=== PATIENT | male | born 1945 | race Caucasian/White ===

== ENCOUNTER 2024-12-06 10:24 | Outpatient (CLI) | payer MEDICARE, SELFPAY ==
--- NOTE | 2024-12-06 12:12 | P.ANES_ITS ---
Anesthesia Charges Start Date/Time Anesthesia Start Date: 12/06/24 Anesthesia Start Time: 11:38 Stop Date/Time Anesthesia Stop Date: 12/06/24 Anesthesia Stop Time: 12:08 Coding CPT Codes CPT Codes: ANES LWR INTST NDSC NOS - [id number] ([id number]) P3 - PATIENT W/SEVERE SYS DISEASE, QK - LACING CUTTER 2-4 CNCRNT ANES PROC, QX - HOSPITALITY TEAM MEMBER SVC W/ MD MED DIRECTION
--- NOTE | 2024-12-06 12:12 | W.ANESCHARGE ---
Anesthesia Charges Start Date/Time Anesthesia Start Date: 12/06/24 Anesthesia Start Time: 11:38 Stop Date/Time Anesthesia Stop Date: 12/06/24 Anesthesia Stop Time: 12:08 Coding CPT Codes CPT Codes: ANES LWR INTST NDSC NOS - [id number] ([id number]) P3 - PATIENT W/SEVERE SYS DISEASE, QK - BRAKE TESTER 2-4 CNCRNT ANES PROC, QX - POWER OPERATOR SVC W/ MD MED DIRECTION
--- NOTE | 2024-12-06 12:18 | W.ANESCHARGE ---
Anesthesia Charges Start Date/Time Anesthesia Start Date: 12/06/24 Anesthesia Start Time: 11:38 Stop Date/Time Anesthesia Stop Date: 12/06/24 Anesthesia Stop Time: 12:08 Summary Extremes of Age - Over 70 or under 1: MDA Coding CPT Codes CPT Codes: ANES LWR INTST NDSC NOS - [id number] ([id number]) QK - PAPER MACHINE OPERATOR 2-4 CNCRNT ANES PROC, QX - RESERVOIR ENGINEERING ADVISOR SVC W/ MD MED DIRECTION, P3 - PATIENT W/SEVERE SYS DISEASE Additional Codes: Summary - Extremes of Age - Over 70 or under 1: MDA ([id number])
== END 2024-12-06 10:25 | disposition home or self-care (01) ==
PROVIDERS: Visit Provider Internal Medicine Gastroenterology
DX: Z12.11 Encounter for screening for malignant neoplasm of colon (principal); Z86.0101 Personal history of adenomatous and serrated colon polyps; D12.3 Benign neoplasm of transverse colon; K57.30 Diverticulosis of large intestine without perforation or abscess without bleeding
CPT/HCPCS: 00811; 45385; 88305; 99100; J2704